=== PATIENT | female | born 1945 | race Two or more races ===

== ENCOUNTER 2024-09-18 01:44 | Inpatient (IN) | payer OTHER ==
[2024-09-18] VITALS (8 sets, daily range): BP systolic 122–151; BP diastolic 54–71; PULSE 56–61; RESP 10–19; TEMP 97.2–97.7; O2SAT 96–100
[~2024-09-18] VITALS: Ht 160 cm; Wt 74.2 kg
--- NOTE | 2024-09-18 02:07 | ED.PDOC ---
GI ASSESSMENT HPI Comments 79-year-old female who came to ER for abdominal pain. Patient states, 1 hour ago, she developed sudden onset stabbing right upper quadrant abdominal pain nonradiating constant. Denies any nausea, vomiting or diarrhea. Blood pressure upon arrival was 173/78 mm Hg. Patient has history of hypertension and is s tatus post cholecystectomy. Chief Complaint: Abdominal Pain Time Seen by MD: 02:07 Reviewed Notes: Nurses Notes Allergies: Coded Allergies: Meperidine (Verified Allergy, Unknown, 09/18/24) Information Source: Patient Mode of Arrival: Ambulatory Timing: Minutes Duration: Since onset Prehospital treatment: None Quality: Stabbing Vomitus: None Stool: Normal Severity: Moderate Recent: None Recent Hx of: Abdominal Surgery Pain Location: RUQ Modifying Factors: Nothing Associated sign and symptoms: Abdominal Pain Past Medical History PAST MEDICAL HISTORY: HTN Surgical History: Cholecystectomy, Hysterectomy Surgical History (Other): Right knee surgery CLINICAL LEADER History: Denies all CLINICAL LEADER Hx Family History Family History: Reviewed,noncontributory to illness Social History Smoker: Non-Smoker Alcohol: Denies ETOH Use Drugs: Denies Drug Use Lives In: Home Constitutional: denies: chills, diaphoresis, fatigue, fever, malaise, sweats, weakness, others EENTM: denies: blurred vision, double vision, ear bleeding, ear discharge, ear drainage, ear pain, ear ringing, eye pain, eye redness, hearing loss, mouth pain, mouth swelling, nasal discharge, nose bleeding, nose congestion, nose pain, photophobia, tearing, throat pain, throat swelling, voice changes, others Respiratory: denies: cough, hemoptysis, orthopnea, SOB at rest, shortness of breath, SOB with excertion, stridor, wheezing, others Cardiovascular: denies: chest pain, dizzy spells, diaphoresis, Dyspnea on exertion, edema, irregular heart beat, left arm pain, lightheadedness, palpitations, PND, syncope, others Gastrointestinal: reports: abdominal pain; denies: abdomen distended, blood streaked bowels, constipated, diarrhea, dysphagia, difficulty swallowing, hematemesis, melena, nausea, poor appetite, poor fluid intake, rectal bleeding, rectal pain, vomiting, others Genitourinary: denies: abnormal vagina bleeding, burning, dyspareunia, dysuria, flank pain, frequency, hematuria, incontinence, pain, , vagina discharge, urgency, others Neurological: denies: dizziness, fainting, headache, left sided numbness, left sided weakness, numbness, paresthesia, pre-existing deficit, right sided numbness, right sided weakness, seizure, speech problems, tingling, tremors, weakness, others Musculoskeletal: denies: back pain, gout, joint pain, joint swelling, muscle pain, muscle stiffness, neck pain, others Integumetry: denies: bruises, change in color, change in hair/nails, dryness, laceration, lesions, lumps, rash, wounds, others Allergic/Immunocompromised: denies: Difficulty Healing, Frequent Infections, Hives, Itching, others Hematologic/Lymphatic: denies: anemia, blood clots, easy bleeding, easy bruising, swollen glands, others Endocrine: denies: excessive hunger, excessive sweating, excessive thirst, excessive urination, flushing, intolerance to cold, intolerance to heat, unexplained weight gain, unexplained weight loss, others Psychiatric: denies: anxiety, bipolar disorder, depression, hopeless, panic disorder, schizophrenia, sleepless, suicidal, others Physical Exam General Appearance: No Apparent Distress, Normal HEENT: Normal ENT Inspection, Pharynx Normal, TMs Normal Neck: Full Range of Motion, Non-Tender, Normal, Normal Inspection Respiratory: Chest Non-Tender, Lungs Clear, No Accessory Muscle Use, No Respiratory Distress, Normal Breath Sounds Cardiovascular: No Edema, No JVD, No Murmur, No Gallop, Normal Peripheral Pulses, Regular Rate/Rhythm Breast Exam: Deferred Gastrointestinal: No Organomegaly, Non Tender, No Pulsatile Mass, Normal Bowel Sounds, Soft Genitalia: Deferred Pelvic: Deferred Rectal: Deferred Extremities: No calf tenderness, Normal capillary refill, Normal inspection, No rmal range of motion, Non-tender, No pedal edema Musculoskeletal : Apperance: Normal Neurologic: Alert, batch unloader II-XII nml as Tested, No Motor Deficits, Normal Affect, Normal Mood, No Sensory Deficits Cerebellar Function: Normal Reflexes: Normal Skin: Dry, Normal Color, Warm Lymphatic: No Adenopathy Was a procedure done? Was a procedure done?: No GI differential Dx Differential Diagnosis: Constipation, Diverticular disease, Gastritis/PUD, Gastroenteritis, Hernia, Pancreatitis, UTI, Urolithiasis X-Ray, Labs, Meds, VS Vital Signs Date Time Temp Pulse Resp B/P (MAP) Pulse Ox O2 Delivery O2 Flow Rate FiO2 09/18/24 04:35 58 11 97 Room Air* 0 21 09/18/24 04:19 97.7 63 11 145/74 (97) 96 97.7 09/18/24 02:22 70 18 96 Room Air 09/18/24 02:22 97.5 70 18 173/78 (109) 96 97.5 09/18/24 01:59 97.5 70 18 173/78 (109) 96 Lab Test 09/18/24 02:34 09/18/24 02:00 Range/Units White Blood Count 5.0 4.4-10.8 10^3/uL Red Blood Count 3.85 L 4.0-5.20 10^6/uL Hemoglobin 12.7 12.2-16.2 g/dL Hematocrit 37.4 36.0-46.0 % Mean Corpuscular Volume 97.2 80.0-100.0 fL Mean Corpuscular Hemoglobin 32.9 H 28.0-32.0 pg Mean Corpuscular Hemoglobin Concent 33.9 32.0-36.0 g/dL Red Cell Distribution Width 13.7 11.8-14.3 % Platelet Count 177 140-450 10^3/uL Mean Platelet Volume 7.8 6.9-10.8 fL Neutrophils (%) (Auto) 59.2 37.0-80.0 % Lymphocytes (%) (Auto) 25.1 10.0-50.0 % Monocytes (%) (Auto) 11.7 0.0-12.0 % Eosinophils (%) (Auto) 3.5 0.0-7.0 % Basophils (%) (Auto) 0.5 0.0-2.0 % Neutrophils # (Auto) 3.0 1.6-8.6 10 ^3/uL Lymphocytes # (Auto) 1.3 0.4-5.4 10 ^3/uL Monocytes # (Auto) 0.6 0-1.3 10 ^3/uL Eosinophils # (Auto) 0.2 0-0.8 10 ^3/uL Basophils # (Auto) 0 0-0.2 10 ^3/uL Nucleated Red Blood Cells 0.1 % Sodium Level 141 136-145 mmol/L Potassium Level 4.1 3.5-5.1 mmol/L Chloride Level 107 98-107 mmol/L Carbon Dioxide Level 26 20-31 mmol/L Anion Gap 8 5-15 Blood Urea Nitrogen 22 9-23 mg/dL Creatinine 0.71 0.550-1.02 mg/dL Glomerular Filtration Rate Calc 88 >90 mL/min BUN/Creatinine Ratio 31.0 H 10.0-20.0 Serum Glucose 114 H 74-106 mg/dL Calcium Level 10.2 8.7-10.4 mg/dL Total Bilirubin 0.4 0.2-1.0 mg/dL Aspartate Amino Transferase (AST) 18 13-40 U/L Alanine Aminotransferase (ALT) 12 7-40 U/L Alkaline Phosphatase 117 H 46-116 U/L Total Protein 7.5 5.7-8.2 g/dL Albumin 4.2 3.2-4.8 g/dL Lipase 32 12-53 U/L Urine Color Light-yellow Yellow Urine Clarity Clear Clear Urine pH 5.5 5.0-9.0 Urine Specific [place] 1.024 1.001-1.035 Urine Protein Negative Negative Urine Ketones Negative Negative Urine Blood 1+ H Negative /uL Urine Nitrite Negative Negative Urine Bilirubin Negative Negative Urine Urobilinogen Normal Negative mg/dL Urine Leukocyte Esterase Negative Negative /uL Urine RBC 4 0 - 4 /hpf Urine WBC <1 0 - 5 /hpf Urine Squamous Epithelial Cells Few <5 /hpf Urine Bacteria Few H None Seen /hpf Urine Mucus Few None Seen Urine Glucose Normal Normal mg/dL Current Medications Medications (Trade) Dose Ordered Sig/Carla Route Start Time Stop Time Status Last Admin Ondansetron HCl (Zofran Po) 4 mg ONCE ONCE PO 09/18/24 02:15 09/18/24 02:16 DC 09/18/24 02:17 Al Hydrox/Mg Hydrox/Simethicone (Maalox Plus) 30 ml ONCE ONCE PO 09/18/24 02:15 09/18/24 02:16 DC 09/18/24 02:16 Famotidine (Pepcid Tablet) 20 mg ONCE ONCE PO 09/18/24 02:15 09/18/24 02:16 DC 09/18/24 02:17 Acetaminophen/ Hydrocodone Bitart ([place]anson 10/325MG Tab) 1 tab ONCE ONCE PO 09/18/24 02:15 09/18/24 02:16 DC 09/18/24 02:18 PROCEDURE(s): ABPL - CT AB PEL WO CON-NO ORAL OR IV . FINDINGS: CT ABDOMEN: Lung base: Scarring is seen in right middle lobe, lingula and both lower lobes. Small sliding hiatus hernia is seen. Dense mitral valvular calcifications. Unenhanced Liver: The liver is normal in size. There is no intrahepatic biliary radicle dilatation. Gallbladder: The gallbladder is not visualized (post operative status). The common bile duct is not dilated. Unenhanced Pancreas: The pancreas is atrophic. No focal lesion is seen within. The peripancreatic fat-planes are normal. Unenhanced Spleen: The spleen is normal in size and does not show any focal abnormality. Retroperitoneum: Both adrenal glands are normal in size and morphology in this unenhanced CT scan. There is no significant retroperitoneal lymphadenopathy. The kidneys are normal in size with no hydronephrosis. Punctate right renal calculus seen. Incidentally detected 11 mm right renal Bosniak 1 simple cortical cyst. No follow-up is recommended as incidentally detected renal lesions are likely benign. Vessels: Aorta, IVC and the mesenteric vessels cannot be commented in this unenhanced CT scan. Stomach and bowel: The bowel loops are unremarkable. There is no ascites. Skeletal system: Degenerative changes are noted in the thoracolumbar spine. Grade 1 anterolisthesis of L4 on L5 vertebra is seen. CT PELVIS: Appendix: The appendix is unremarkable in appearance. Colon: Scattered colonic diverticulosis is seen without diverticulitis. Bladder: The urinary bladder is unremarkable. Uterus and ovaries: Post hysterectomy status. No adnexal pathology. No pelvic lymphadenopathy is identified. No abnormal fluid collection is seen. Small umbilical hernia is seen containing omentum. There is herniation of omentum and bowel loops in the right lateral abdominal wall in intermuscular plane. IMPRESSION: 1. Punctate right renal calculus. 2. Scattered colonic diverticulosis is seen without diverticulitis. 3. Small umbilical hernia containing omentum. 4. Herniation of omentum and bowel loops in the right lateral abdominal wall in intermuscular plane. 5. No hydronephrosis. 6. No abdominal mass or adenopathy. 7. No ascites. 8. No free air or inflammatory changes. 9. Additional chronic and/or ancillary findings as detailed above. 10. Suggest clinical correlation and follow-up as clinically deemed necessary. Time of 1ST Reevaluation: 02:04 Reevaluation 1ST: Unchanged Time of 2ND Reevaluation: 03:44 Reevaluation 2ND: Unchanged Consultation: Other (I discussed the case with [facility] Auth # [id number] who request Gen Surgery eval at [facility]) Patient Education/Counseling: Diagnosis, Treatment Family Education/Counseling: No Family Present Departure 1 Departure Time of Disposition: 03:44 (I discussed the case with [facility] Auth # [id number] who request Gen Surgery evaluation at [facility]) Impression: Primary Impression: RUQ abdominal pain Additional Impression: Ventral hernia Disposition: ADMITTED INPATIENT Admit to: Med Surg Condition: Guarded Critical Care Note Critical Care Time?: No Stability Stability form required: No Heart Score Heart Score: Heart Score Response (Comments) Value History Slightly Suspicious 0 EKG Normal 0 Age >65 2 Risk Factors 1 or 2 risk factors 1 Troponin N/A 0 Total 3 I personally scribed for LOPEZ MANZANARES MD (JAY) on 09/18/24 at 02:07. Electronically submitted by Felipe Simpson ([email or web address]). I personally scribed for LOPEZ MANZANARES MD (JAY) on 09/18/24 at 02:08. Electronically submitted by Felipe Simpson ([email or web address]). I personally scribed for LOPEZ MANZANARES MD (JAY) on 09/18/24 at 03:22. Electronically submitted by Felipe Simpson ([email or web address]). LOPEZ MANZANARES MD Sep 18, 2024 02:07
[2024-09-18] MEDS: MAALOX PLUS or MAALOX 30 ML PO ONE (02:16)
[2024-09-18] MEDS: ONDANSETRON ODT 4 MG TAB PO ONE (02:17)
[2024-09-18] MEDS: FAMOTIDINE 20 MG TAB PO ONE (02:17)
[2024-09-18] MEDS: HYDROcodone-ACET 10/325MG TAB PO ONE (02:18)
[2024-09-18 02:20] LABS: Urine Bacteria FEW /hpf (None Seen); Urine Blood 1+ /uL (Negative); Urine Clarity Clear (Clear); Urine Color Light-Yellow (Yellow); Urine Mucus FEW (None Seen); Urine Protein, UAD Negative (Negative); Urine Specific Gravity 1.024 (1.001-1.035); Urine Urobilinogen Normal (Negative); Urine WBC <1 /hpf (0 - 5); Urine pH 5.5 (5.0-9.0)
[2024-09-18 02:39] LABS: Basophils # (auto) 0 10 ^3/uL (0-0.2); Basophils % (auto) 0.5 % (0.0-2.0); Eosinophils # (auto) 0.2 10 ^3/uL (0-0.8); Eosinophils % (auto) 3.5 % (0.0-7.0); Hematocrit 37.4 % (36.0-46.0); Hemoglobin 12.7 g/dL (12.2-16.2); Lymphocytes # (auto) 1.3 10 ^3/uL (0.4-5.4); Lymphocytes % (auto) 25.1 % (10.0-50.0); Mean Corpuscular Hemoglobin 32.9 pg (28.0-32.0); Mean Corpuscular Hgb Conc. 33.9 g/dL (32.0-36.0); Mean Corpuscular Volume 97.2 fL (80.0-100.0); Monocytes # (auto) 0.6 10 ^3/uL (0-1.3); Monocytes % (auto) 11.7 % (0.0-12.0); Neutrophils % (auto) 59.2 % (37.0-80.0); Nucleated Red Blood Cells % 0.1 %; Platelet Count (auto) 177 10^3/uL (140-450); Red Blood Cells 3.85 10^6/uL (4.0-5.20); Red Cell Distribution Width 13.7 % (11.8-14.3)
--- NOTE | 2024-09-18 02:57 | DVH ---
Examination: ABPL CLINICAL INDICATION: Right flank pain DIREAS; Reason for Exam: Wheelchair; Wheelchair; Modes of Trans portation DITRANS; How is patient transported? COMPARISON: None. CONTRAST USED: None. TECHNIQUE: A plain CT study of the abdomen and pelvis is performed. The examination was performed w ith 5 mm thin slices. Multiplanar reconstructions were obtained. CT scan done according to ALARA (As Low as Reasonably Achievable). FINDINGS: CT ABDOMEN: Lung base: Scarring is seen in right middle lobe, lingula and both lower lobes. Small sliding hiatus hernia is seen. Dense mitral valvular calcifications. Unenhanced Liver: The liver is normal in size. There is no intrahepatic biliary radicle dilatation . Gallbladder: The gallbladder is not visualized (post operative status). The common bile duct is no t dilated. Unenhanced Pancreas: The pancreas is atrophic. No focal lesion is seen within. The peripancreati c fat-planes are normal. Unenhanced Spleen: The spleen is normal in size and does not show any focal abnormality. Retroperitoneum: Both adrenal glands are normal in size and morphology in this unenhanced CT scan. There is no significant retroperitoneal lymphadenopathy. The kidneys are normal in size with no hydr onephrosis. Punctate right renal calculus seen. Incidentally detected 11 mm right renal Bosniak 1 simple cortical cyst. No follow-up is recommended as incidentally detected renal lesions are likely benign. Vessels: Aorta, IVC and the mesenteric vessels cannot be commented in this unenhanced CT scan. Stomach and bowel: The bowel loops are unremarkable. There is no ascites. Skeletal system: Degenerative changes are noted in the thoracolumbar spine. Grade 1 anterolisthesis of L4 on L5 vertebra is seen. CT PELVIS: Appendix: The appendix is unremarkable in appearance. Colon: Scattered colonic diverticulosis is seen without diverticulitis. Bladder: The urinary bladder is unremarkable. Uterus and ovaries: Post hysterectomy status. No adnexal pathology. No pelvic lymphadenopathy is identified. No abnormal fluid collection is seen. Small umbilical hernia is seen containing omentum. There is herniation of omentum and bowel loops in the right lateral abdominal wall in intermuscular p jeff. IMPRESSION: 1. Punctate right renal calculus. 2. Scattered colonic diverticulosis is seen without diverticulitis. 3. Small umbilical hernia containing omentum. 4. Herniation of omentum and bowel loops in the right lateral abdominal wall in intermuscular plane. 5. No hydronephrosis. 6. No abdominal mass or adenopathy. 7. No ascites. 8. No free air or inflammatory changes. 9. Additional chronic and/or ancillary findings as detailed above. 10. Suggest clinical correlation and follow-up as clinically deemed necessary. Electronically Signed 09/18/2024 02:56 Kyle Sahni
[2024-09-18 02:59] LABS: Alanine Aminotransferase 12 U/L (7-40); Albumin 4.2 g/dL (3.2-4.8); Alkaline Phosphatase 117 U/L (46-116); Anion Gap 8 (5-15); Aspartate Aminotransferase 18 U/L (13-40); Bilirubin, Total 0.4 mg/dL (0.2-1.0); Blood Urea Nitrogen 22 mg/dL (9-23); Calcium 10.2 mg/dL (8.7-10.4); Carbon Dioxide 26 mmol/L (20-31); Chloride 107 mmol/L (98-107); Glucose 114 mg/dL (74-106); Lipase 32 U/L (12-53); Potassium 4.1 mmol/L (3.5-5.1); Sodium 141 mmol/L (136-145); Total Protein 7.5 g/dL (5.7-8.2)
[2024-09-18] MEDS ORDERED: DOCUSATE SOD 100 MG CAP PO PRN (06:00)
[2024-09-18] MEDS ORDERED: MORPHINE SULFATE INJ 2 MG/ml SYRG IV PRN (06:00)
[2024-09-18] MEDS ORDERED: ACETAMINOPHEN 325 MG TAB PO PRN (06:00)
[2024-09-18] MEDS ORDERED: ONDANSETRON HCL 4 MG/2 ML VIAL IV PRN (06:00)
[2024-09-18] MEDS ORDERED: hydrALAZINE HCL 20 MG/ML VL IV PRN (06:00)
[2024-09-18] MEDS ORDERED: NITROGLYCERIN 0.4 MG SL TAB SL PRN (06:00)
--- NOTE | 2024-09-18 06:17 | DVHHP2 ---
History of Present Illness Reason for Visit: Acute abdominal pain History of Present Illness The patient is a 79-year-old female with past medical history of hypertension who presented to [facility] ED with complaint of abdominal pain. Patient reports sudden onset of stabbing right upper quadrant abdominal pain, nonradiating, constant in nature, rating 7/10 numeric scale, associated shortness of breaths, getting worse that prompted this visit. Patient was seen and evaluated in the ED, laboratory data shows WBC 5.0, platelets 177, sodium 141, potassium 4.1, BUN 22, creatinine 0.71, glucose 114, lipase 32, blood pressure 149/71, heart rate 58, temperature 97.7 F, O2 saturation 96% on room air. Abdomen/pelvic CT revealing punctate right renal calculus, scattered colonic diverticulosis is seen without diverticulitis, small umbilical hernia containing omentum, herniation of omentum and bowel loops in the right lateral abdominal wall in intramuscular plane. Please see medication orders section in the computer. On my assessment, patient denied chest pain, no headache, no di zziness, no diaphoresis, currently on oxygen, no diarrhea, no nausea, no vomiting, no fever, no chills. Patient was admitted for further evaluation and medical management. Past Medical History HTN Past Surgical History Cholecystectomy, Hysterectomy, Right knee surgery Family History Reviewed, noncontributory to the management of this case. Past Social History The patient lives at home, denies smoking, alcohol or illicit drugs abuse. Review of Systems Constitutional: Yes: Weakness; No: Fever, Chills, Sweats, Malaise, Other Eyes: No: Pain, Vision change, Conjunctivae inflammation, Eyelid inflammation, Other, Redness ENT: No: Ear pain, Ear discharge, Nose pain, Nose discharge, Nose congestion, Mouth pain, Mouth swelling, Throat pain, Throat swelling, Other Respiratory: Shortness of breath; No: Cough, Dry, SOB with excertion, Wheezing, Hemoptysis, Pleuritic Pain, Sputum, Wheezing, Other Cardiovascular: No: Chest Pain, Palpitations, Orthopnea, Paroxysmal Noc. Dyspnea, Edema, Lt Headedness, Other Gastrointestinal: Abdominal Pain; No: Nausea, Vomiting, Diarrhea, Constipation, Melena, Hematochezia, Other Genitourinary: No Dysuria, No Frequency, No Incontinence, No Hematuria, No Retention, No Other Musculoskeletal: No: other, neck pain, shoulder pain, arm pain, back pain, hand pain, leg pain, foot pain Skin: No: Rash, Lesions, Jaundice, Bruising, Other Neurological: No: Weakness, Numbness, Incoordination, Change in speech, Confusion, Seizures, Other Allergies: Coded Allergies: Meperidine (Verified Allergy, Unknown, 09/18/24) Exam Vital Signs Vital Signs Date Time Temp Pulse Resp B/P (MAP) Pulse Ox O2 Delivery O2 Flow Rate FiO2 09/18/24 05:00 56 10 149/71 (97) 96 09/18/24 04:35 Room Air* 0 21 09/18/24 04:19 97.7 97.7 General Appearance: Alert, Oriented X3, Cooperative, No acute distress HEENT: Atraumatic, PERRLA, EOMI, Mucous membr. moist/pink Respiratory: Clear to auscultation, Normal air movement Cardiovascular: Regular rate, Normal S1, Normal S2, No murmurs Abdominal: Normal bowel sounds, Soft, No hepatospenomegaly, No masses, Other (Reports tenderness) Extremities: No clubbing, No cyanosis, No edema, Normal pulses, No tenderness/swelling Skin: No rashes, No breakdown, No significant lesion Neuro: Normal speech, Normal tone, Sensation intact, Cranial nerves 3-12 NL, Reflexes 2+, Other (Weakness) Psych/Mental Status: Mental status NL, Mood NL Labs/Xrays Labs Test 09/18/24 02:34 09/18/24 02:00 Range/Units White Blood Count 5.0 4.4-10.8 10^3/uL Red Blood Count 3.85 L 4.0-5.20 10^6/uL Hemoglobin 12.7 12.2-16.2 g/dL Hematocrit 37.4 36.0-46.0 % Mean Corpuscular Volume 97.2 80.0-100.0 fL Mean Corpuscular Hemoglobin 32.9 H 28.0-32.0 pg Mean Corpuscular Hemoglobin Concent 33.9 32.0-36.0 g/dL Red Cell Distribution Width 13.7 11.8-14.3 % Platelet Count 177 140-450 10^3/uL Mean Platelet Volume 7.8 6.9-10.8 fL Neutrophils (%) (Auto) 59.2 37.0-80.0 % Lymphocytes (%) (Auto) 25.1 10.0-50.0 % Monocytes (%) (Auto) 11.7 0.0-12.0 % Eosinophils (%) (Auto) 3.5 0.0-7.0 % Basophils (%) (Auto) 0.5 0.0-2.0 % Neutrophils # (Auto) 3.0 1.6-8.6 10 ^3/uL Lymphocytes # (Auto) 1.3 0.4-5.4 10 ^3/uL Monocytes # (Auto) 0.6 0-1.3 10 ^3/uL Eosinophils # (Auto) 0.2 0-0.8 10 ^3/uL Basophils # (Auto) 0 0-0.2 10 ^3/uL Nucleated Red Blood Cells 0.1 % Sodium Level 141 136-145 mmol/L Potassium Level 4.1 3.5-5.1 mmol/L Chloride Level 107 98-107 mmol/L Carbon Dioxide Level 26 20-31 mmol/L Anion Gap 8 5-15 Blood Urea Nitrogen 22 9-23 mg/dL Creatinine 0.71 0.550-1.02 mg/dL Glomerular Filtration Rate Calc 88 >90 mL/min BUN/Creatinine Ratio 31.0 H 10.0-20.0 Serum Glucose 114 H 74-106 mg/dL Calcium Level 10.2 8.7-10.4 mg/dL Total Bilirubin 0.4 0.2-1.0 mg/dL Aspartate Amino Transferase (AST) 18 13-40 U/L Alanine Aminotransferase (ALT) 12 7-40 U/L Alkaline Phosphatase 117 H 46-116 U/L Total Protein 7.5 5.7-8.2 g/dL Albumin 4.2 3.2-4.8 g/dL Lipase 32 12-53 U/L Urine Color Light-yellow Yellow Urine Clarity Clear Clear Urine pH 5.5 5.0-9.0 Urine Specific [place] 1.024 1.001-1.035 Urine Protein Negative Negative Urine Ketones Negative Negative Urine Blood 1+ H Negative /uL Urine Nitrite Negative Negative Urine Bilirubin Negative Negative Urine Urobilinogen Normal Negative mg/dL Urine Leukocyte Esterase Negative Negative /uL Urine RBC 4 0 - 4 /hpf Urine WBC <1 0 - 5 /hpf Urine Squamous Epithelial Cells Few <5 /hpf Urine Bacteria Few H None Seen /hpf Urine Mucus Few None Seen Urine Glucose Normal Normal mg/dL PATIENT: AMY CORDERO ACCT: [id number] UNIT: [id number] : 1945 LOC: ER ROOM / BED: / AGE / SEX: 79 / F ADM STATUS: REG ER SERVICE [id number] ORDERING PHYSICIAN: LOPEZ MANZANARES MD PROCEDURE(s): ABPL - CT AB PEL WO CON-NO ORAL OR IV REASON: right flank pain ORDER NUMBER(s): [id number], ACCESSION NUMBER(s): [id number] Examination: ABPL CLINICAL INDICATION: Right flank pain DIREAS; Reason for Exam: Wheelchair; Wheelchair; Modes of Transportation DITRANS; How is patient transported? COMPARISON: None. CONTRAST USED: None. TECHNIQUE: A plain CT study of the abdomen and pelvis is performed. The examination was performed with 5 mm thin slices. Multiplanar reconstructions were obtained. CT scan done according to ALARA (As Low as Reasonably Achievable). FINDINGS: CT ABDOMEN: Lung base: Scarring is seen in right middle lobe, lingula and both lower lobes. Small sliding hiatus hernia is seen. Dense mitral valvular calcifications. Unenhanced Liver: The liver is normal in size. There is no intrahepatic biliary radicle dilatation. Gallbladder: The gallbladder is not visualized (post operative status). The common bile duct is not dilated. Unenhanced Pancreas: The pancreas is atrophic. No focal lesion is seen within. The peripancreatic fat-planes are normal. Unenhanced Spleen: The spleen is normal in size and does not show any focal abnormality. Retroperitoneum: Both adrenal glands are normal in size and morphology in this unenhanced CT scan. There is no significant retroperitoneal lymphadenopathy. The kidneys are normal in size with no hydronephrosis. Punctate right renal calculus seen. Incidentally detected 11 mm right renal Bosniak 1 simple cortical cyst. No follow-up is recommended as incidentally detected renal lesions are likely benign. Vessels: Aorta, IVC and the mesenteric vessels cannot be commented in this unenhanced CT scan. Stomach and bowel: The bowel loops are unremarkable. There is no ascites. Skeletal system: Degenerative changes are noted in the thoracolumbar spine. Grade 1 anterolisthesis of L4 on L5 vertebra is seen. CT PELVIS: Appendix: The appendix is unremarkable in appearance. Colon: Scattered colonic diverticulosis is seen without diverticulitis. Bladder: The urinary bladder is unremarkable. Uterus and ovaries: Post hysterectomy status. No adnexal pathology. No pelvic lymphadenopathy is identified. No abnormal fluid collection is seen. Small umbilical hernia is seen containing omentum. There is herniation of omentum and bowel loops in the right lateral abdominal wall in intermuscular plane. IMPRESSION: 1. Punctate right renal calculus. 2. Scattered colonic diverticulosis is seen without diverticulitis. 3. Small umbilical hernia containing omentum. 4. Herniation of omentum and bowel loops in the right lateral abdominal wall in intermuscular plane. 5. No hydronephrosis. 6. No abdominal mass or adenopathy. 7. No ascites. 8. No free air or inflammatory changes. 9. Additional chronic and/or ancillary findings as detailed above. 10. Suggest clinical correlation and follow-up as clinically deemed necessary. Assessment/Plan Assessment/Plan RUQ abdominal pain Ventral hernia Shortness of breaths Generalized weakness Plan 1. Admit to med surge unit 2. Breathing treatment 3. Pain control management 4. Management of fluids and electrolytes 5. Consultation for surgery 6. Diagnostic tests abdomen/pelvis CT 7. DVT prophylaxis-on SCDs 8. Repeat labs CBC, CMP in a.m. 9. Continue with current medical management 10. Treatment plan discussed with patient and RN. Patient verbalized understanding. Plan discussed with: Patient, Other (RN) Problem List: (1) RUQ abdominal pain (2) Ventral hernia (3) Shortness of breath (4) Generalized weakness Date of Service: Sep 18, 2024 Billing Provider: LIANA APPLE DNP Common Visit Codes: [id number] INP/OBS CARE (HIGH) LIANA APPLE DNP Sep 18, 2024 06:17
[2024-09-18 06:22] LABS: Basophils # (auto) 0 10 ^3/uL (0-0.2); Basophils % (auto) 0.4 % (0.0-2.0); Eosinophils # (auto) 0.1 10 ^3/uL (0-0.8); Eosinophils % (auto) 3.7 % (0.0-7.0); Hematocrit 33.5 % (36.0-46.0); Hemoglobin 11.6 g/dL (12.2-16.2); Lymphocytes # (auto) 1.4 10 ^3/uL (0.4-5.4); Lymphocytes % (auto) 33.7 % (10.0-50.0); Mean Corpuscular Hemoglobin 33.5 pg (28.0-32.0); Mean Corpuscular Hgb Conc. 34.7 g/dL (32.0-36.0); Mean Corpuscular Volume 96.3 fL (80.0-100.0); Monocytes # (auto) 0.4 10 ^3/uL (0-1.3); Monocytes % (auto) 10.5 % (0.0-12.0); Neutrophils # (auto) 2.1 10 ^3/uL (1.6-8.6); Neutrophils % (auto) 51.7 % (37.0-80.0); Platelet Count (auto) 162 10^3/uL (140-450); Red Blood Cells 3.48 10^6/uL (4.0-5.20); Red Cell Distribution Width 13.8 % (11.8-14.3); White Blood Cell 4.1 10^3/uL (4.4-10.8)
[2024-09-18] MEDS: SODIUM CHLOR 0.9% PF (SALINE LOCK) 10ML VIAL/SYR IV SCH (06:33)
[2024-09-18 06:34] LABS: Potassium 4.1 mmol/L (3.5-5.1); Sodium 143 mmol/L (136-145)
[2024-09-18 06:35] LABS: Anion Gap 9 (5-15); Calcium 9.7 mg/dL (8.7-10.4); Carbon Dioxide 26 mmol/L (20-31)
[2024-09-18 06:40] LABS: BUN/Creatinine Ratio 31.9 (10.0-20.0); Blood Urea Nitrogen 22 mg/dL (9-23); Glucose 97 mg/dL (74-106)
[2024-09-18 06:47] LABS: Chloride 108 mmol/L (98-107)
[2024-09-18] MEDS ORDERED: ALBUTEROL SULF 2.5 MG/0.5ML(0.5%) NEB SOLN NEB PRN (08:30)
[2024-09-18] MEDS ORDERED: IPRATROPIUM BROM 0.5 MG/2.5ML INH SOL NEB PRN (08:30)
[2024-09-18] MEDS: HYDROcodone-ACET 5/325MG TAB PO PRN (10:05)
[2024-09-18] MEDS: FAMOTIDINE (10MG/ML) 2ML VL IV SCH (10:05)
--- NOTE | 2024-09-18 10:07 | DVHINCON2 ---
Date of service: Sep 18, 2024 History of Present Illness 79-year-old female status post open cholecystectomy approximately 20 years ago now complaining of severe right upper quadrant abdominal pain that began yes terday. Currently the pain is 5/10 in intensity. Patient denies any fevers, chills, nausea or vomiting. Past Medical History Hypertension Past Surgical History Open cholecystectomy. Hysterectomy. Family History: Cardiovascular disease G8 MOTHER Family History Noncontributory Social History Denies alcohol, tobacco, IV drug use Allergies: Coded Allergies: Meperidine (Verified Allergy, Unknown, 09/18/24) Current Medications Current Medications Medications (Trade) Dose Ordered Sig/Carla Route PRN Reason Start Time Stop Time Status Last Admin Famotidine (Pepcid Injection) 20 mg DAILY IV 09/18/24 10:00 Sodium Chloride (Saline Lock Ns) 10 ml Q8HR IV 09/18/24 06:00 09/18/24 06:33 Acetaminophen/ Hydrocodone Bitart ([place] 5/325MG Tab) 1 tab Q4HP PRN PO MODERATE PAIN (4-6 PAIN SCALE) 09/18/24 06:00 Ondansetron HCl (Zofran) 4 mg Q4HP PRN IV NAUSEA / VOMITING 09/18/24 06:00 Docusate Sodium (Colace Capsule) 100 mg BIDPRN PRN PO FOR CONSTIPATION 09/18/24 06:00 Acetaminophen (Tylenol Tablet) 650 mg Q6HP PRN PO PAIN SCALE 1-3 OR TEMP>100.4 09/18/24 06:00 Nitroglycerin (Ntrostat Sublingual) 0.4 mg Q5MINP PRN SL FOR CHEST PAIN 09/18/24 06:00 Morphine Sulfate 2 mg Q30M PRN IV FOR CHEST PAIN 09/18/24 06:00 Hydralazine HCl (Apresoline Injection) 10 mg Q6HP PRN IV SBP>150 09/18/24 06:00 Albuterol (Ventolin Medneb) 2.5 mg Q4HPRN PRN NEB SHORTNESS OF BREATH 09/18/24 08:30 09/18/24 09:00 DC Ipratropium [place] (Atrovent Medneb) 0.5 mg Q4HPRN PRN NEB SHORTNESS OF BREATH 09/18/24 08:30 09/18/24 09:00 DC Vital Signs Vital Signs Date Time Temp Pulse Resp B/P (MAP) Pulse Ox O2 Delivery O2 Flow Rate FiO2 09/18/24 08:57 97.5 57 18 122/54 (76) 96 97.5 09/18/24 08:21 Nasal Cannula* 2 28 Physical Exam GEN: Age-appropriate female in no acute distress. Alert. HEENT: Normocephalic atraumatic. Moist mucous membranes. Anicteric sclerae. CV: RRR Respiratory: CTAB ABD: There is a well-healed right subcostal incisional scar from her open cholecystectomy. There is no obvious hernia however there is localized tenderness to palpation in the right upper quadrant over the incisional scar. There was also incarcerated umbilical hernia approximately 3 cm in size that is nontender. Patient also has suprapubic and left lower quadrant incisional scar from her other surgery. Otherwise rest of the her abdomen is nontender except for the right upper quadrant tenderness. CT of the abdomen and pelvis: Herniation of omentum and bowel loops in the right lateral abdominal wall in the intermuscular plane. Small umbilical hernia containing omentum. Scattered colonic diverticulosis without diverticulitis. Labs/Diagnostic Data Labs Test 09/18/24 06:07 09/18/24 02:34 09/18/24 02:00 Range/Units White Blood Count 4.1 L 4.4-10.8 10^3/uL Red Blood Count 3.48 L 4.0-5.20 10^6/uL Hemoglobin 11.6 L 12.2-16.2 g/dL Hematocrit 33.5 #L 36.0-46.0 % Mean Corpuscular Volume 96.3 80.0-100.0 fL Mean Corpuscular Hemoglobin 33.5 H 28.0-32.0 pg Mean Corpuscular Hemoglobin Concent 34.7 32.0-36.0 g/dL Red Cell Distribution Width 13.8 11.8-14.3 % Platelet Count 162 140-450 10^3/uL Mean Platelet Volume 8.1 6.9-10.8 fL Neutrophils (%) (Auto) 51.7 37.0-80.0 % Lymphocytes (%) (Auto) 33.7 10.0-50.0 % Monocytes (%) (Auto) 10.5 0.0-12.0 % Eosinophils (%) (Auto) 3.7 0.0-7.0 % Basophils (%) (Auto) 0.4 0.0-2.0 % Neutrophils # (Auto) 2.1 1.6-8.6 10 ^3/uL Lymphocytes # (Auto) 1.4 0.4-5.4 10 ^3/uL Monocytes # (Auto) 0.4 0-1.3 10 ^3/uL Eosinophils # (Auto) 0.1 0-0.8 10 ^3/uL Basophils # (Auto) 0 0-0.2 10 ^3/uL Nucleated Red Blood Cells 0.0 % Sodium Level 143 136-145 mmol/L Potassium Level 4.1 3.5-5.1 mmol/L Chloride Level 108 H 98-107 mmol/L Carbon Dioxide Level 26 20-31 mmol/L Anion Gap 9 5-15 Blood Urea Nitrogen 22 9-23 mg/dL Creatinine 0.69 0.550-1.02 mg/dL Glomerular Filtration Rate Calc 89 >90 mL/min BUN/Creatinine Ratio 31.9 H 10.0-20.0 Serum Glucose 97 74-106 mg/dL Calcium Level 9.7 8.7-10.4 mg/dL Total Bilirubin 0.4 0.2-1.0 mg/dL Aspartate Amino Transferase (AST) 18 13-40 U/L Alanine Aminotransferase (ALT) 12 7-40 U/L Alkaline Phosphatase 117 H 46-116 U/L Total Protein 7.5 5.7-8.2 g/dL Albumin 4.2 3.2-4.8 g/dL Lipase 32 12-53 U/L Urine Color Light-yellow Yellow Urine Clarity Clear Clear Urine pH 5.5 5.0-9.0 Urine Specific [place] 1.024 1.001-1.035 Urine Protein Negative Negative Urine Ketones Negative Negative Urine Blood 1+ H Negative /uL Urine Nitrite Negative Negative Urine Bilirubin Negative Negative Urine Urobilinogen Normal Negative mg/dL Urine Leukocyte Esterase Negative Negative /uL Urine RBC 4 0 - 4 /hpf Urine WBC <1 0 - 5 /hpf Urine Squamous Epithelial Cells Few <5 /hpf Urine Bacteria Few H None Seen /hpf Urine Mucus Few None Seen Urine Glucose Normal Normal mg/dL Assessment 1. Herniation of the omentum and small intestine at the previous open cholecystectomy site into the intermuscular plane without obvious obstruction. Plan/Recommendation 1. Discussed the finding with the patient. Offered her surgery which will consist of diagnostic laparoscopy with possible open surgery to reduce the intes abimael omentum into the abdominal cavity and possibly fix the herniation. She will think about the surgery prior to making a decision. Plan discussed with: Patient JADEN SCHWAB MD Sep 18, 2024 10:07
--- NOTE | 2024-09-18 12:56 | DVHPN2 ---
Subjective Patient found ambulating around the room. Denies any pain at this time. Once palpated patient was right upper quadrant, noted severe abdominal pain. Reviewed: Care Plan, H&P, Labs, Medications, Previous Orders Changes from previous H/P or p: No Changes General: Per HPI Eyes: No Pain, No Vision change, No Conjunctivae inflammation, No Eyelid inflammation, No Other, No Redness ENT: No Ear pain, No Ear discharge, No Nose pain, No Nose discharge, No Nose congestion, No Mouth pain, No Mouth swelling, No Throat pain, No Throat swelling, No Other Cardiovascular: No Chest Pain, No Palpitations, No Orthopnea, No Paroxysmal Noc. Dyspnea, No Edema, No Lt Headedness, No Other Respiratory: No Cough, No Dry; Shortness of breath; No SOB with excertion, No Wheezing, No Hemoptysis, No Pleuritic Pain, No Sputum, No Other Gastrointestinal: No Nausea, No Vomiting; Abdominal Pain; No Diarrhea, No Constipation, No Melena, No Hematochezia, No Other Genitourinary: No Dysuria, No Frequency, No Incontinence, No Hematuria, No Retention, No Other Musculoskeletal: No other, No neck pain, No shoulder pain, No arm pain, No back pain, No hand pain, No leg pain, No foot pain Skin: No Rash, No Lesions, No Jaundice, No Bruising, No Other Objective Vitals Vital Signs Date Time Temp Pulse Resp B/P (MAP) Pulse Ox O2 Delivery O2 Flow Rate FiO2 09/18/24 12:48 97.2 57 18 141/54 (83) 96 97.2 09/18/24 09:22 Room Air* 0 21 General Appearance: Alert, Oriented X3, Cooperative, No acute distress HEENT: Atraumatic, PERRLA Lungs: Clear to auscultation, Normal air movement Cardiovascular: Normal S1, Normal S2 Abdomen: Normal bowel sounds, Soft, Other (Tenderness with palpation) Genitourinary: No Apparent Abnormalities Musculoskeletal: Normal sensory function, Normal motor function Neuro: Normal gait Psych/Mental Status: Mental status NL, Mood NL Medications Current Medications Medications Dose Ordered Sig/Carla Route Start Time Stop Time Status Last Admin Dose Admin Famotidine 20 mg DAILY IV 09/18/24 10:00 09/18/24 10:05 20 MG Sodium Chloride 10 ml Q8HR IV 09/18/24 06:00 09/18/24 06:33 10 ML Acetaminophen/ Hydrocodone Bitart 1 tab Q4HP PRN PO 09/18/24 06:00 09/18/24 10:05 1 TAB Ondansetron HCl 4 mg Q4HP PRN IV 09/18/24 06:00 Docusate Sodium 100 mg BIDPRN PRN PO 09/18/24 06:00 Acetaminophen 650 mg Q6HP PRN PO 09/18/24 06:00 Nitroglycerin 0.4 mg Q5MINP PRN SL 09/18/24 06:00 Morphine Sulfate 2 mg Q30M PRN IV 09/18/24 06:00 Hydralazine HCl 10 mg Q6HP PRN IV 09/18/24 06:00 Laboratory Results Laboratory Tests 09/18/24 06:07 Chemistry Test 09/18/24 02:34 09/18/24 06:07 Albumin 4.2 g/dL (3.2-4.8) Calcium Level 10.2 mg/dL (8.7-10.4) 9.7 mg/dL (8.7-10.4) Total Protein 7.5 g/dL (5.7-8.2) Lipid panel Test 09/18/24 02:34 Lipase 32 U/L (12-53) LFT Test 09/18/24 02:34 Alanine Aminotransferase (ALT) 12 U/L (7-40) Alkaline Phosphatase 117 U/L (46-116) H Aspartate Amino Transferase (AST) 18 U/L (13-40) Total Bilirubin 0.4 mg/dL (0.2-1.0) Urinalysis Test 09/18/24 02:00 Urine Color Light-yellow (Yellow) Urine Clarity Clear (Clear) Urine pH 5.5 (5.0-9.0) Urine Specific [place] 1.024 (1.001-1.035) Urine Protein Negative (Negative) Urine Ketones Negative (Negative) Urine Blood 1+ /uL (Negative) H Urine Nitrite Negative (Negative) Urine Bilirubin Negative (Negative) Urine Urobilinogen Normal mg/dL (Negative) Urine Leukocyte Esterase Negative /uL (Negative) Urine RBC 4 /hpf (0 - 4) Urine WBC <1 /hpf (0 - 5) Urine Squamous Epithelial Cells Few /hpf (<5) Urine Bacteria Few /hpf (None Seen) H Urine Mucus Few (None Seen) Urine Glucose Normal mg/dL (Normal) Labs and/or images reviewed: Labs reviewed by me, Image(s) reviewed by me Assessment/Plan Assessment/Plan Impression: -abdominal pain secondary to abdominal hernia -primary hypertension Plan: -findings of CT scan discussed with the patient. Palpate with the patient was right upper quadrant with noted severe guarding and pain. Patient states that she has known hernias, and was referred by her PCP to see a surgeon, for which she states that she was noncompliant. Dr. Morales, surgeon has spoke with the patient at this facility in his offer laparoscopic procedure. Patient was currently thinking about it. -pain management -clear liquid diet -PUD and DVT prophylaxis -further course of care per patient's decision on surgery. -patient continues to have severe pain with light palpation, with noted ventral hernia to cholecystectomy site. High-risk for incarcerated obstruction. Patient unstable for transfer to [facility]. Total time spent with patient discussing and formulating plan of care: 35 minutes. This medical document was created using an electronic medical record system with [employer] dictation system. Although this document has been carefully reviewed, there may still be some phonetic and typographical errors. These areas are purely typographical due to imperfections of the software programs, and do not reflect any compromise in the patient's medical care. Plan discussed with: Patient, Other (RN) Date of Service: Sep 18, 2024 Billing Provider: KRISS CALDERÓN NP Common Visit Codes: [id number] INP/OBS CARE(HIGH) KRISS CALDERÓN NP Sep 18, 2024 12:56
--- NOTE | 2024-09-18 21:54 | DVHINCON2 ---
Date of service: Sep 18, 2024 Family History: Cardiovascular disease G8 MOTHER Allergies: Coded Allergies: Meperidine (Verified Allergy, Unknown, 09/18/24) Current Medications Current Medications Medications (Trade) Dose Ordered Sig/Carla Route PRN Reason Start Time Stop Time Status Last Admin Famotidine (Pepcid Injection) 20 mg DAILY IV 09/18/24 10:00 09/18/24 10:05 Sodium Chloride (Saline Lock Ns) 10 ml Q8HR IV 09/18/24 06:00 09/18/24 21:49 Acetaminophen/ Hydrocodone Bitart ([place] 5/325MG Tab) 1 tab Q4HP PRN PO MODERATE PAIN (4-6 PAIN SCALE) 09/18/24 06:00 09/18/24 10:05 Ondansetron HCl (Zofran) 4 mg Q4HP PRN IV NAUSEA / VOMITING 09/18/24 06:00 Docusate Sodium (Colace Capsule) 100 mg BIDPRN PRN PO FOR CONSTIPATION 09/18/24 06:00 Acetaminophen (Tylenol Tablet) 650 mg Q6HP PRN PO PAIN SCALE 1-3 OR TEMP>100.4 09/18/24 06:00 Nitroglycerin (Ntrostat Sublingual) 0.4 mg Q5MINP PRN SL FOR CHEST PAIN 09/18/24 06:00 Morphine Sulfate 2 mg Q30M PRN IV FOR CHEST PAIN 09/18/24 06:00 Hydralazine HCl (Apresoline Injection) 10 mg Q6HP PRN IV SBP>150 09/18/24 06:00 Albuterol (Ventolin Medneb) 2.5 mg Q4HPRN PRN NEB SHORTNESS OF BREATH 09/18/24 08:30 09/18/24 09:00 DC Ipratropium [place] (Atrovent Medneb) 0.5 mg Q4HPRN PRN NEB SHORTNESS OF BREATH 09/18/24 08:30 09/18/24 09:00 DC Vital Signs Vital Signs Date Time Temp Pulse Resp B/P (MAP) Pulse Ox O2 Delivery O2 Flow Rate FiO2 09/18/24 17:00 97.7 56 17 131/68 (89) 99 97.7 09/18/24 09:22 Room Air* 0 21 Labs/Diagnostic Data Labs Test 09/18/24 06:07 09/18/24 02:34 09/18/24 02:00 Range/Units White Blood Count 4.1 L 4.4-10.8 10^3/uL Red Blood Count 3.48 L 4.0-5.20 10^6/uL Hemoglobin 11.6 L 12.2-16.2 g/dL Hematocrit 33.5 #L 36.0-46.0 % Mean Corpuscular Volume 96.3 80.0-100.0 fL Mean Corpuscular Hemoglobin 33.5 H 28.0-32.0 pg Mean Corpuscular Hemoglobin Concent 34.7 32.0-36.0 g/dL Red Cell Distribution Width 13.8 11.8-14.3 % Platelet Count 162 140-450 10^3/uL Mean Platelet Volume 8.1 6.9-10.8 fL Neutrophils (%) (Auto) 51.7 37.0-80.0 % Lymphocytes (%) (Auto) 33.7 10.0-50.0 % Monocytes (%) (Auto) 10.5 0.0-12.0 % Eosinophils (%) (Auto) 3.7 0.0-7.0 % Basophils (%) (Auto) 0.4 0.0-2.0 % Neutrophils # (Auto) 2.1 1.6-8.6 10 ^3/uL Lymphocytes # (Auto) 1.4 0.4-5.4 10 ^3/uL Monocytes # (Auto) 0.4 0-1.3 10 ^3/uL Eosinophils # (Auto) 0.1 0-0.8 10 ^3/uL Basophils # (Auto) 0 0-0.2 10 ^3/uL Nucleated Red Blood Cells 0.0 % Sodium Level 143 136-145 mmol/L Potassium Level 4.1 3.5-5.1 mmol/L Chloride Level 108 H 98-107 mmol/L Carbon Dioxide Level 26 20-31 mmol/L Anion Gap 9 5-15 Blood Urea Nitrogen 22 9-23 mg/dL Creatinine 0.69 0.550-1.02 mg/dL Glomerular Filtration Rate Calc 89 >90 mL/min BUN/Creatinine Ratio 31.9 H 10.0-20.0 Serum Glucose 97 74-106 mg/dL Calcium Level 9.7 8.7-10.4 mg/dL Total Bilirubin 0.4 0.2-1.0 mg/dL Aspartate Amino Transferase (AST) 18 13-40 U/L Alanine Aminotransferase (ALT) 12 7-40 U/L Alkaline Phosphatase 117 H 46-116 U/L Total Protein 7.5 5.7-8.2 g/dL Albumin 4.2 3.2-4.8 g/dL Lipase 32 12-53 U/L Urine Color Light-yellow Yellow Urine Clarity Clear Clear Urine pH 5.5 5.0-9.0 Urine Specific [place] 1.024 1.001-1.035 Urine Protein Negative Negative Urine Ketones Negative Negative Urine Blood 1+ H Negative /uL Urine Nitrite Negative Negative Urine Bilirubin Negative Negative Urine Urobilinogen Normal Negative mg/dL Urine Leukocyte Esterase Negative Negative /uL Urine RBC 4 0 - 4 /hpf Urine WBC <1 0 - 5 /hpf Urine Squamous Epithelial Cells Few <5 /hpf Urine Bacteria Few H None Seen /hpf Urine Mucus Few None Seen Urine Glucose Normal Normal mg/dL ELIGIO CONNER MD Sep 18, 2024 21:54
--- NOTE | 2024-09-18 21:58 | DVHINCON2 ---
Date of service: Sep 18, 2024 Referring Physician TRELL Harvey Reason for Consultation Dyspnea History of Present Illness 79-year-old woman history of hypertension who presented to [facility] with a chief complaint of abdominal pain. She described it as stabbing right upper quadrant abdominal pain. It was not radiate. It was constant in nature. It was 7/10 on a numeric scale. She notes shortness of breath. Pulmonary consultation is called for evaluation of shortness of breath. Review of systems: 14 point review of systems is negative unless otherwise noted above. Past medical history: Hypertension Past surgical history: Cholecystectomy, hysterectomy, right knee surgery Medications: Reviewed Allergies: Meperidine Family history: No family history of premature CAD. No family history of lung disease. Social history: Nonsmoker. No alcohol or illicit drug use. Lives at home. Family History: Cardiovascular disease G8 MOTHER Allergies: Coded Allergies: Meperidine (Verified Allergy, Unknown, 09/18/24) Current Medications Current Medications Medications (Trade) Dose Ordered Sig/Carla Route PRN Reason Start Time Stop Time Status Last Admin Famotidine (Pepcid Injection) 20 mg DAILY IV 09/18/24 10:00 09/18/24 10:05 Sodium Chloride (Saline Lock Ns) 10 ml Q8HR IV 09/18/24 06:00 09/18/24 21:49 Acetaminophen/ Hydrocodone Bitart ([place] 5/325MG Tab) 1 tab Q4HP PRN PO MODERATE PAIN (4-6 PAIN SCALE) 09/18/24 06:00 09/18/24 10:05 Ondansetron HCl (Zofran) 4 mg Q4HP PRN IV NAUSEA / VOMITING 09/18/24 06:00 Docusate Sodium (Colace Capsule) 100 mg BIDPRN PRN PO FOR CONSTIPATION 09/18/24 06:00 Acetaminophen (Tylenol Tablet) 650 mg Q6HP PRN PO PAIN SCALE 1-3 OR TEMP>100.4 09/18/24 06:00 Nitroglycerin (Ntrostat Sublingual) 0.4 mg Q5MINP PRN SL FOR CHEST PAIN 09/18/24 06:00 Morphine Sulfate 2 mg Q30M PRN IV FOR CHEST PAIN 09/18/24 06:00 Hydralazine HCl (Apresoline Injection) 10 mg Q6HP PRN IV SBP>150 09/18/24 06:00 Albuterol (Ventolin Medneb) 2.5 mg Q4HPRN PRN NEB SHORTNESS OF BREATH 09/18/24 08:30 09/18/24 09:00 DC Ipratropium [place] (Atrovent Medneb) 0.5 mg Q4HPRN PRN NEB SHORTNESS OF BREATH 09/18/24 08:30 09/18/24 09:00 DC Vital Signs Vital Signs Date Time Temp Pulse Resp B/P (MAP) Pulse Ox O2 Delivery O2 Flow Rate FiO2 09/18/24 17:00 97.7 56 17 131/68 (89) 99 97.7 09/18/24 09:22 Room Air* 0 21 Physical Exam Gen.: Patient lying in bed in no apparent distress. She is breathing comfortably on room air. Head: Normocephalic, atraumatic Eyes: EOMI/PERRLA. Ears: Normal hearing. Normal anatomy. Neck/trachea: Trachea midline, supple. Nose: Normal external anatomy. Mouth: Moist mucous membranes. Chest: . air entry bilaterally. No wheezing or rhonchi. Cardio vascular: Positive S1, positive S2. Regular rate and rhythm. Abdomen: Positive bowel sounds in all 4 quadrants. Soft, non-tender, non-dis tended. : Deferred. Rectal: Deferred Skin: Warm, dry. Extremities: 2+ radial pulses bilaterally. No lower extremity edema. Neuro: Awake, alert, oriented x3. No gross motor or sensory deficits. Cranial nerves II through XII intact. Gait not assessed. Labs/Diagnostic Data Labs Test 09/18/24 06:07 09/18/24 02:34 09/18/24 02:00 Range/Units White Blood Count 4.1 L 4.4-10.8 10^3/uL Red Blood Count 3.48 L 4.0-5.20 10^6/uL Hemoglobin 11.6 L 12.2-16.2 g/dL Hematocrit 33.5 #L 36.0-46.0 % Mean Corpuscular Volume 96.3 80.0-100.0 fL Mean Corpuscular Hemoglobin 33.5 H 28.0-32.0 pg Mean Corpuscular Hemoglobin Concent 34.7 32.0-36.0 g/dL Red Cell Distribution Width 13.8 11.8-14.3 % Platelet Count 162 140-450 10^3/uL Mean Platelet Volume 8.1 6.9-10.8 fL Neutrophils (%) (Auto) 51.7 37.0-80.0 % Lymphocytes (%) (Auto) 33.7 10.0-50.0 % Monocytes (%) (Auto) 10.5 0.0-12.0 % Eosinophils (%) (Auto) 3.7 0.0-7.0 % Basophils (%) (Auto) 0.4 0.0-2.0 % Neutrophils # (Auto) 2.1 1.6-8.6 10 ^3/uL Lymphocytes # (Auto) 1.4 0.4-5.4 10 ^3/uL Monocytes # (Auto) 0.4 0-1.3 10 ^3/uL Eosinophils # (Auto) 0.1 0-0.8 10 ^3/uL Basophils # (Auto) 0 0-0.2 10 ^3/uL Nucleated Red Blood Cells 0.0 % Sodium Level 143 136-145 mmol/L Potassium Level 4.1 3.5-5.1 mmol/L Chloride Level 108 H 98-107 mmol/L Carbon Dioxide Level 26 20-31 mmol/L Anion Gap 9 5-15 Blood Urea Nitrogen 22 9-23 mg/dL Creatinine 0.69 0.550-1.02 mg/dL Glomerular Filtration Rate Calc 89 >90 mL/min BUN/Creatinine Ratio 31.9 H 10.0-20.0 Serum Glucose 97 74-106 mg/dL Calcium Level 9.7 8.7-10.4 mg/dL Total Bilirubin 0.4 0.2-1.0 mg/dL Aspartate Amino Transferase (AST) 18 13-40 U/L Alanine Aminotransferase (ALT) 12 7-40 U/L Alkaline Phosphatase 117 H 46-116 U/L Total Protein 7.5 5.7-8.2 g/dL Albumin 4.2 3.2-4.8 g/dL Lipase 32 12-53 U/L Urine Color Light-yellow Yellow Urine Clarity Clear Clear Urine pH 5.5 5.0-9.0 Urine Specific [place] 1.024 1.001-1.035 Urine Protein Negative Negative Urine Ketones Negative Negative Urine Blood 1+ H Negative /uL Urine Nitrite Negative Negative Urine Bilirubin Negative Negative Urine Urobilinogen Normal Negative mg/dL Urine Leukocyte Esterase Negative Negative /uL Urine RBC 4 0 - 4 /hpf Urine WBC <1 0 - 5 /hpf Urine Squamous Epithelial Cells Few <5 /hpf Urine Bacteria Few H None Seen /hpf Urine Mucus Few None Seen Urine Glucose Normal Normal mg/dL Assessment Impression: Dyspnea Lung scarring Hiatal hernia , small Right upper quadrant abdominal pain Ventral hernia Generalized weakness Plan: CT abdomen and pelvis lung windows reviewed. Scarring of the right middle lobe, lingula and bilateral lower lobes. Small sliding hiatal hernia. On room air Incentive spirometry Pain control. Avoid over-sedation. Bronchodilators discontinued. Recommend outpatient pulmonary function test once stable. Pepcid for hiatal hernia GI prophylaxis-Pepcid Prognosis: Guarded given multiple comorbidities. Rest of plan per hospitalist and other consultants. Thank you for allowing me to participate in this patient's care. Further recommendations will depend on patient's clinical course. Please do not hesitate to contact me if you have any questions or concerns. This medical document was created using an electronic medical record system with [employer] dictation system. Although this document has been carefully reviewed, there may still be some phonetic and typographical errors. These areas are purely typographical due to imperfections of the software programs, an d do not reflect any compromise in the patient's medical care. Plan discussed with: Other (BRIAN Venegas, JAVA SUPPORT ENGINEER) ELIGIO CONNER MD Sep 18, 2024 21:58
[2024-09-19 01:00] VITALS: BP 138/65; PULSE 59; RESP 19; TEMP 98; O2SAT 95
[2024-09-19 05:00] VITALS: BP 151/65; PULSE 63; RESP 19; TEMP 97.9; O2SAT 96
[2024-09-19 06:28] LABS: Basophils # (auto) 0 10 ^3/uL (0-0.2); Basophils % (auto) 0.4 % (0.0-2.0); Eosinophils # (auto) 0.1 10 ^3/uL (0-0.8); Eosinophils % (auto) 4.2 % (0.0-7.0); Hematocrit 36.4 % (36.0-46.0); Hemoglobin 12.5 g/dL (12.2-16.2); Lymphocytes % (auto) 27.9 % (10.0-50.0); Mean Corpuscular Hemoglobin 33.1 pg (28.0-32.0); Mean Corpuscular Hgb Conc. 34.4 g/dL (32.0-36.0); Mean Corpuscular Volume 96.3 fL (80.0-100.0); Monocytes # (auto) 0.4 10 ^3/uL (0-1.3); Monocytes % (auto) 11.9 % (0.0-12.0); Neutrophils % (auto) 55.6 % (37.0-80.0); Nucleated Red Blood Cells % 0.2 %; Platelet Count (auto) 152 10^3/uL (140-450); Red Blood Cells 3.79 10^6/uL (4.0-5.20); Red Cell Distribution Width 13.4 % (11.8-14.3); White Blood Cell 3.5 10^3/uL (4.4-10.8)
[2024-09-19 06:47] LABS: Alanine Aminotransferase 11 U/L (7-40); Albumin 3.7 g/dL (3.2-4.8); Alkaline Phosphatase 71 U/L (46-116); Anion Gap 9 (5-15); Aspartate Aminotransferase 19 U/L (13-40); BUN/Creatinine Ratio 19.2 (10.0-20.0); Blood Urea Nitrogen 14 mg/dL (9-23); Calcium 9.8 mg/dL (8.7-10.4); Carbon Dioxide 26 mmol/L (20-31); Chloride 107 mmol/L (98-107); Glucose 92 mg/dL (74-106); Potassium 3.9 mmol/L (3.5-5.1); Sodium 142 mmol/L (136-145)
[2024-09-19 06:48] LABS: Total Protein 6.5 g/dL (5.7-8.2)
[2024-09-19 06:57] LABS: Bilirubin, Total 1.2 mg/dL (0.2-1.0)
[2024-09-19 09:00] VITALS: BP 142/69; PULSE 53; RESP 17; TEMP 97.7; O2SAT 97
--- NOTE | 2024-09-19 16:45 | DVHDS2 ---
Discharge Summary Date of Admission Sep 18, 2024 at 06:00 Date of Discharge: Sep 19, 2024 Admitting Diagnosis Abdominal pain Labs/Diagnostic Data: Laboratory Results Test 09/19/24 06:11 09/18/24 02:34 09/18/24 02:00 White Blood Count 3.5 10^3/uL (4.4-10.8) Red Blood Count 3.79 10^6/uL (4.0-5.20) Hemoglobin 12.5 g/dL (12.2-16.2) Hematocrit 36.4 % (36.0-46.0) Mean Corpuscular Volume 96.3 fL (80.0-100.0) Mean Corpuscular Hemoglobin 33.1 pg (28.0-32.0) Mean Corpuscular Hemoglobin Concent 34.4 g/dL (32.0-36.0) Red Cell Distribution Width 13.4 % (11.8-14.3) Platelet Count 152 10^3/uL (140-450) Mean Platelet Volume 8.0 fL (6.9-10.8) Neutrophils (%) (Auto) 55.6 % (37.0-80.0) Lymphocytes (%) (Auto) 27.9 % (10.0-50.0) Monocytes (%) (Auto) 11.9 % (0.0-12.0) Eosinophils (%) (Auto) 4.2 % (0.0-7.0) Basophils (%) (Auto) 0.4 % (0.0-2.0) Neutrophils # (Auto) 2.0 10 ^3/uL (1.6-8.6) Lymphocytes # (Auto) 1.0 10 ^3/uL (0.4-5.4) Monocytes # (Auto) 0.4 10 ^3/uL (0-1.3) Eosinophils # (Auto) 0.1 10 ^3/uL (0-0.8) Basophils # (Auto) 0 10 ^3/uL (0-0.2) Nucleated Red Blood Cells 0.2 % Sodium Level 142 mmol/L (136-145) Potassium Level 3.9 mmol/L (3.5-5.1) Chloride Level 107 mmol/L (98-107) Carbon Dioxide Level 26 mmol/L (20-31) Anion Gap 9 (5-15) Blood Urea Nitrogen 14 mg/dL (9-23) Creatinine 0.73 mg/dL (0.550-1.02) Glomerular Filtration Rate Calc 85 mL/min (>90) BUN/Creatinine Ratio 19.2 (10.0-20.0) Serum Glucose 92 mg/dL (74-106) Calcium Level 9.8 mg/dL (8.7-10.4) Total Bilirubin 1.2 mg/dL (0.2-1.0) Aspartate Amino Transferase (AST) 19 U/L (13-40) Alanine Aminotransferase (ALT) 11 U/L (7-40) Alkaline Phosphatase 71 U/L (46-116) Total Protein 6.5 g/dL (5.7-8.2) Albumin 3.7 g/dL (3.2-4.8) Lipase 32 U/L (12-53) Urine Color Light-yellow (Yellow) Urine Clarity Clear (Clear) Urine pH 5.5 (5.0-9.0) Urine Specific [place] 1.024 (1.001-1.035) Urine Protein Negative (Negative) Urine Ketones Negative (Negative) Urine Blood 1+ /uL (Negative) Urine Nitrite Negative (Negative) Urine Bilirubin Negative (Negative) Urine Urobilinogen Normal mg/dL (Negative) Urine Leukocyte Esterase Negative /uL (Negative) Urine RBC 4 /hpf (0 - 4) Urine WBC <1 /hpf (0 - 5) Urine Squamous Epithelial Cells Few /hpf (<5) Urine Bacteria Few /hpf (None Seen) Urine Mucus Few (None Seen) Urine Glucose Normal mg/dL (Normal) Other Laboratory Tests 09/19/24 06:11 Brief Hx & Hospital Course: 79-year-old lady admitted to the hospital with abdominal pain. The patient decided to leave AMA the next day. She had abdominal CT which showed right renal calculus. She had diverticulosis. Small umbilical hernia. Her urine showed some RBC x4. Kidney function test normal. Liver function tests normal. WBCs 3.5. Hemoglobin 12.5 on discharge day. Patient left AMA earlier this morning Condition at Discharge: Undetermined Final Diagnosis/Problems List Abdominal pain Nephrolithiasis Microhematuria Secondary Diagnosis: Diverticulosis Ventral hernia Discharge Disposition: AMA Discharge Instruct/Medications Diet: See Comment (Left AMA) Diet comment: AMA Activity: AMA Activity comment: AMA Follow Up/Referral: AMA Medications: AMA Discharge Statement: "Patient was advised to return to the ER or call 911 if any headaches, dizziness, shortness of breath, chest pain, abdominal pain, bleeding, fevers, or worsening of medical condition. Patient was counseled about treatment plan, medications, possible side effects, patientverbalized understanding. All questions were answered to the best of my ability. This discharge took greater then 30 minutes in planning, reviewing documentation, counseling the patient, and discussing with other team members." ASSESSMENT ASSESSMENT Assessment Date of Service: Sep 19, 2024 Billing Provider: DEBRA OLVERA MD Common Visit Codes: 03936-LXK/OBS DISCH DAY <30MIN DEBRA OLVERA MD Sep 19, 2024 16:45
--- NOTE | 2024-09-19 23:04 | DVHPN2 ---
Progress Note - Dictate Date Seen: Sep 19, 2024 Medical Necessity Reason Pt with a Central, PICC or Fol: No Subjective Patient seen and examined at bedside. Breathing comfortably on room air. Overnight events reviewed. vital signs Vital Sign Date Time Temp Pulse Resp B/P (MAP) Pulse Ox O2 Delivery O2 Flow Rate FiO2 09/19/24 09:00 97.7 53 17 142/69 (93) 97 97.7 09/19/24 08:00 Room Air* 0 21 objective Gen.: Patient lying in bed in no apparent distress. Breathing on room air. Head: Normocephalic, atraumatic. Eyes: EOMI/PERRLA. Ears: Normal hearing. Normal anatomy. Neck/trachea: Trachea midline, supple. Nose: Normal external anatomy. Mouth: Moist mucous membranes. Chest: Decreased air entry bilaterally. No wheezing or rhonchi. Cardiovascular: Positive S1, positive S2. Regular rate and rhythm. Abdomen: Positive bowel sounds in all 4 quadrants. Soft, non-tender, non- distended. : Deferred. Rectal: Deferred. Skin: Warm, dry. Intact. Extremities: 2+ radial pulses bilaterally. No lower extremity edema. Neuro: Awake, alert, oriented x3. No gross motor or sensory deficits. Cranial nerves II through XII intact. Gait not assessed. laboratory and microbiology Laboratory Tests 09/19/24 06:11 Test 09/19/24 06:11 Range/Units Serum Glucose 92 74-106 mg/dL Assessment/Plan Impression: Dyspnea Lung scarring Hiatal hernia , small Right upper quadrant abdominal pain Ventral hernia Generalized weakness Events: Remains on room air No respiratory distress. IS. Pain control Avoid oversedation Note, patient left AMA. Patient is aware of risks and benefits of doing so. Labs and imaging reviewed. Plan: CT abdomen and pelvis lung windows reviewed. Scarring of the right middle lobe, lingula and bilateral lower lobes. Small sliding hiatal hernia. On room air Incentive spirometry Pain control. Avoid over-sedation. Bronchodilators discontinued. Recommend outpatient pulmonary function test once stable. Pepcid for hiatal hernia GI prophylaxis-Pepcid Prognosis: Guarded given multiple comorbidities. Rest of plan per hospitalist and other consultants. Thank you, TRELL Harvey, for allowing me to participate in this patient's care. Further recommendations will depend on patient's clinical course. Please do not hesitate to contact me if you have any questions or concerns. This medical document was created using an electronic medical record system with [employer] dictation system. Although this document has been carefully reviewed, there may still be some phonetic and typographical errors. These areas are purely typographical due to imperfections of the software programs, and do not reflect any compromise in the patient's medical care. Plan discussed with: Patient, Other (RN) ELIGIO CONNER MD Sep 19, 2024 23:04
== END 2024-09-19 12:19 | disposition left against medical advice (07) | DRG 395 ==
LOC: ER 01:44 → OVERFLOW 06:00 → WEST WING 08:53
PROVIDERS: ADMIT Nurse Practitioner Family; ATTEND Nurse Practitioner Acute Care
DX: K42.9 Umbilical hernia without obstruction or gangrene (principal); K57.30 Diverticulosis of large intestine without perforation or abscess without bleeding; K43.9 Ventral hernia without obstruction or gangrene; K44.9 Diaphragmatic hernia without obstruction or gangrene; N20.0 Calculus of kidney; I10 Essential (primary) hypertension; Z53.29 Procedure and treatment not carried out because of patient's decision for other reasons; Z90.49 Acquired absence of other specified parts of digestive tract; Z88.1 Allergy status to other antibiotic agents; Z90.710 Acquired absence of both cervix and uterus; Z82.49 Family history of ischemic heart disease and other diseases of the circulatory system
CPT/HCPCS: 36415; 80053; 85025; G0378